=== PATIENT | male | born 1955 | race African-American/Black ===

== ENCOUNTER 2025-09-10 15:05 | Outpatient (AMB) | payer MEDICARE, OTHER, SELFPAY ==
--- NOTE | 2025-09-10 15:24 | MHC.OFFVIS ---
Intake Visit Reasons: f/u missed appt 12/2024 HPI Comments Details: The patient is a 70 year old male presenting for follow-up and management of his advanced neurodegenerative disorder. According to his family, his condition has worsened recently; he is not talking much and has difficulty walking, requiring a wheelchair. The patient is cared for at home by his family, with [facility], and they wish for him to remain at home. The patient experiences a reversed sleep-wake cycle, sleeping during the daytime and being awake at night, but is not experiencing hallucinations or agitation. Review of Systems Narrative - Neurological: Reports being non-verbal and having difficulty walking. - Psychiatric: Denies hallucinations or agitation. - Sleep: Reports sleeping during the day and being awake at night. Physical Exam Neuro Other: Mental Status: He is alert and awake but does not communicate. Cranial Nerves: CN II: Visual magana full to confrontation, visual acuity intact. CN III, IV, : Pupils equal, round, reactive to light and accommodation. Extraocular movements are normal. CN V: Facial sensation is normal. CN VII: Facial movements symmetrical. CN VIII: Hearing intact to bedside conversation is normal. CN IX, X: Palate elevates symmetrically. CN XI: Shoulder shrug and head turn symmetrical. CN XII: Tongue midline without atrophy or fasciculations. He is in a wheelchair. Extrapyramidal: Full facial expressions and blinking. No rigidity. Movements are appropriate with no tremor or abnormality. Speech: He did not speak. Assessment & Plan Assessment & Plan (1) Frontotemporal dementia: Comment: PET scan at [facility] in 2020: Diminished metabolism in b/l temporal and frontal lobes, and right parieto-occipital junction. Code(s): G31.09 - Other frontotemporal neurocognitive disorder; F02.80 - Dementia in other diseases classified elsewhere, unspecified severity, without behavioral disturbance, psychotic disturbance, mood disturbance, and anxiety Category: Medical Plan Impression: Severe dementia with PET scan revealing frontotemoral dysfunction Rec: a: Education b: Memantine 5mg bid c: EEG I discussed the patient's worsening condition with his family. I explained the rationale for focusing on interventions that can be fixed, and in that context, I am ordering an EEG to rule out abnormal electrical brain activity. We will initiate a one-month trial of memantine, emphasizing that it will be discontinued if no visible benefit is observed. We also had a [id number] discussion regarding his medications. I advised the family to talk with his primary medical doctor about potentially stopping nonessential medications, such as those for cholesterol, to align treatment with a comfort-focused approach. The final decision on continuing such therapies remains with the family. Orders: Orders EEG Routine Today G93.40 - Encephalopathy, unspecified Medications: New memantine 5 mg PO BID 60 tabs 0RF 30 days Coding Level of Care Code Est Pt Level 4 (26836) Diagnoses Frontotemporal dementia G31.09; F02.80
--- OUTSIDE RECORDS SUMMARY | 2025-09-10 18:19 | XMS_ITS | Encounter Summary ---
Author Organization [facility] Address [address] [place] [address] Phone Care Team Providers Care Gas Burner Operator Name Role Phone Pcp, Unknown Primary Care Provider Unavailabl e Encounter Details Date Type Department Care Team (Late st Contact Info) Description 01/09/2021 Procedure [facility], Ct Scan - [address] [address] Social History Tobacco Use Types Packs/Day Years Used Date Smoking Tobacco: Never Assessed Sex and Gender Information Value Date Recorded Sex Assigned at Not on file Legal Sex Male 8:41 AM EDT Gender Identity Not on file Sexual Orientation Not on file documented as of this encounter Plan of Treatment Not on file documented as of this encounter Visit Diagnoses Not on filedocumented in this encounter Care Teams Gas Burner Operator Relationship Specialty Start Date End Date Pcp, Unknown PCP - General 01/09/21 documented as of this encounter Additional Source Comments The information contained in this document represents components of the legal health record. It is not the complete legal health record.[facility]
--- OUTSIDE RECORDS SUMMARY | 2025-09-10 18:19 | XMS_ITS | Clinical Summary ---
Author Organization [facility] Address [address] [facility] [address] [place] [id number] Phone Care Team Providers Care Rehab Therapy Manager Name Role Phone Pcp, Unknown Primary Care Provider Unavailabl e Allergies Active Allergy Reactions Criticality Noted Date Comments Bee Pollen 01/09/2021 Medications LISINOPRIL ORAL Take by mouth. Active Social History Tobacco Use Types Packs/Day Years Used Date Smoking Tobacco: Never Assessed Education Answer Date Recorded Are you interested in more education? Not on henny e 01/16/2023 Are you concerned about learning? Not on file 01/16/2023 No 01/16/2023 No 01/16/2023 Digital Access Answer Date Recorded No 02/16/2023 No 02/16/2023 Reliable internet access at home? Not on file 02/16/2023 Device with a working camera? Not on file Sex and Gender Information Value Date Recorded Sex Assigned at Not on file Legal Sex Male 8:41 AM EDT Gender Identity Not on file Sexual Orientation Not on file Last Filed Vital Signs Vital Sign Reading Time Taken Comments Blood Pressure 158/85 01/09/2021 11:00 AM EDT Pulse 67 01/09/2021 11:00 AM EDT Temperature 36.4 C (97.5 F) 01/09/2021 9:23 AM EDT Respiratory Rate 16 01/09/2021 11:00 AM EDT Oxygen Saturation 96% 01/09/2021 11:00 AM EDT Inhaled Oxygen Concentration - - Weight - - Height - - Body Mass Index - - Plan of Treatment Not on file Medical Devices Not on file Insurance [facility] Member Subscriber Plan / Payer (Ef fective 2006-Present) Name:Bakari Gonsalez Relation to Subscriber:Self Name:Bakari Gonsalez Payer ID:[id number] (NAIC) Group ID:[id number] Type:PPO Address: [phone] [facility] Member Subscriber Plan / Payer (Ef fective 2006-Present) Name:Bakari Gonsalez Relation to Subscriber:Self Name:Bakari Gonsalez Payer ID:[id number] (NAIC) Group ID:[id number] Type:PPO Address: [phone] [facility] Member Subscriber Plan / Payer (Ef fective 2006-Present) Name:Bakari Gonsalez Relation to Subscriber:Self Name:Bakari Gonsalez Payer ID:[id number] (NAIC) Group ID:[id number] Type:PPO Address: [phone] [facility] Member Subscriber Plan / Payer (Ef fective 2006-Present) Name:Bakari Gonsalez Relation to Subscriber:Self Name:Bakari Gonsalez Payer ID:[id number] (NAIC) Group ID:[id number] Type:PPO Address: [phone] [facility] Member Subscriber Plan / Payer (Ef fective 2006-Present) Name:Bakari Gonsalez Relation to Subscriber:Self Name:Bakari Gonsalez Payer ID:[id number] (NAIC) Group ID:[id number] Type:PPO Address: [id number] [facility] Member Subscriber Plan / Payer (Ef fective 2006-Present) Name:Bakari Gonsalez Relation to Subscriber:Self Name:Bakari Gonsalez Payer ID:[id number] (NAIC) Group ID:[id number] Type:PPO Address: [phone] [facility] Member Subscriber Plan / Payer (Ef fective 2006-Present) Name:Bakari Gonsalez Relation to Subscriber:Self Name:Bakari Gonsalez Payer ID:[id number] (NAIC) Group ID:[id number] Type:PPO Address: [phone] [facility] Member Subscriber Plan / Payer (Ef fective 2006-Present) Name:Bakari Gonsalez Relation to Subscriber:Self Name:Bakari Gonsalez Payer ID:[id number] (NAIC) Group ID:[id number] Type:PPO Address: [phone] [facility] Care Teams Rehab Therapy Manager Relationship Specialty Start Date End Date Pcp, Unknown PCP - General 01/09/21 Additional Source Comments The information contained in this document represents components of the legal health record. It is not the complete legal health record.[facility]
--- OUTSIDE RECORDS SUMMARY | 2025-09-10 18:19 | XMS_ITS | Clinical Summary ---
Author Organization [facility] Address [address] [place] [address] Phone Care Team Providers Care Marshmallow Machine Worker Name Role Phone Physician, No Pcp Primary Care Provider Unavaila ble Allergies Active Allergy Reactions Criticality Noted Date Comments Bee Pollen 03/29/2025 Other 03/12/2023 Medications traZODone (DESYREL) 50 mg tablet TAKE ONE TABLET BY MOUTH 30 MINUTES BEFORE BED NIGHTLY 06/19/2024 Active EPINEPHrine (EpiPen 2-Alexi) 0.3 mg/0.3 mL injection Inject 0.3 mg into the muscle as needed for Other (anaphylaxis/ bee stings). 07/12/2023 Active lisinopril-hydr oCHLOROthiazide (PRINZIDE,ZESTO RETIC) 10-12.5 mg per tablet TAKE 2 TABLETS BY MOUTH EVERY DAY 06/15/2024 Active memantine (NAMENDA) 5 mg tablet Take 1 Tablet by mouth 2 times daily. Active simvastatin (ZOCOR) 40 mg tablet Take 1 Tablet by mouth at bedtime. 03/20/2024 Active tiotropium (SPIRIVA) 18 mcg per inhalation capsule Inhale 1 Capsule into the lungs daily. Inhale the contents of one capsule through the Spiriva device every AM 12/22/2023 Active albuterol HFA (PROAIR HFA ; PROVENTIL HFA ; VENTOLIN HFA) 90 mcg/actuation inhaler INHALE 2 PUFFS INTO THE LUNGS EVERY 4 HOURS NEEDED FOR COUGH OR WHEEZING. 8.5 each 1 09/18/2024 Active apixaban (ELIQUIS) 5 mg tablet Take 1 tablet (5 mg total) by mouth. 11/16/2024 Active polyethylene glycol (MIRALAX) 17 gram packet Take 17 g by mouth 1 (one) time each day. Active Active Problems Problem Noted Date Diagnosed Date Insomnia 12/22/2023 Prediabetes 07/13/2023 Frontotemporal dementia 04/12/2023 Class 1 obesity due to excess calories in adult 04/09/2023 Chronic obstructive pulmonary disease 01/05/2022 Mixed hyperlipidemia 01/05/2022 Primary hypertension 01/05/2022 Immunizations Immunization Administration Dates Next Due Influenza Quadravalent, MDCK , 0.5ml, preservative free (Flucelvax) 6mo and older 05/31/2020 Influenza trivalent, 0.5mL (Fluad) 65yo and olde r 07/10/2022 Influenza trivalent, 0.5mL, preservative free (Fluarix; FluLaval; Fluzone) ages 6mo and older (Afluria) 3 years and older 06/21/2021,07/22/2018 Pneumococcal conjugate 20 va lent (Prevnar 20, PCV 20) 2mo and older 04/12/2023 Pneumococcal polysaccharide 23 valent (Pneumovax 23) 2yo and older 01/05/2022 Td Tetanus diptheria (Tdvax) 7yo and older 08/26 Tdap Tetanus diptheria acell ular pertussis (Boostrix; Adacel) 7yo and older 12/09/2022 Zoster recombinant (Shingrix) 19yo and older ,06/10/2020 Surgical History Surgery Date Site/Laterality Comments WISDOM TOOTH EXTRACTION PROCEDURE: HISTORICAL WISDOM TEETH EXTRACTION KNEE SURGERY 2007 Bilateral PROCEDURE: HISTORICAL KNEE SURGERY Medical History Medical History Date Comments COPD (chronic obstructive pu lmonary disease) ([facility] V24, [facility] V28) DX:COPD (chronic o bstructive pulmonary disease) ([facility]) Essential (primary) hypertension DX:Essential (primary) hypertension Mixed hyperlipidemia DX:Mixed hy perlipidemia Former smoker DX:Former smoker Family History Medical History Relation Name Comments No Known Problems Father No Known Problems Maternal Grandfather No Known Problems Maternal Grandmother No Known Problems Mother No Known Problems Paternal Grandfather No Known Problems Paternal Grandmother No Known Problems Sister 1 No Known Problems Sister 2 No Known Problems Son 1 No Known Problems Son 2 No Known Problems Son 3 No Known Problems Son 4 Relation Name Status Comments Father Maternal Grandfather Maternal Grandmother Mother Paternal Grandfather Paternal Grandmother Sister 1 Alive Sister 2 Alive Sister 3 Alive Son 1 Alive Son 2 Alive Son 3 Alive Son 4 Alive Social History Tobacco Use Types Packs/Day Years Used Date Smoking Tobacco: Former Smokeless Tobacco: Never Alcohol Use Standard Drinks/Week Comments Yes 0 (1 standard drink = 0.6 oz pur e alcohol) Sex and Gender Information Value Date Recorded Sex Assigned at Not on file Legal Sex Male 10:42 PM EST Gender Identity Not on file Sexual Orientation Not on file Last Filed Vital Signs Vital Sign Reading Time Taken Comments Blood Pressure 120/72 03/29/2025 3:54 PM EDT Pulse 58 03/29/2025 3:54 PM EDT Temperature - - Respiratory Rate - - Oxygen Saturation - - Inhaled Oxygen Concentration - - Weight 95.3 kg (210 lb) 03/29/2025 3:54 PM EDT Height 182.9 cm (6') 03/29/2025 3:54 PM EDT Body Mass Index 28.48 03/29/2025 3:54 PM EDT Plan of Treatment Health Maintenance Due Date Last Done Comments Colorectal Cancer Screening: Colonoscopy 1955 Abdominal Aortic Aneurysm (AAA) Screen 08/23/2022 Falls Risk Assessment 08/23/2022 Social Influencers of Health Screening 08/23/2022 Depression Screening 09/20/2024 Hypertension/CHF/CAD Annual BMP Blood Test 01/02/2025 01/03/2024 COVID-19 Vaccine ( season) 2025 09/05/2021, 12/20/2020, 11/29/2020 Influenza Vaccine (#1) 2025 , 06/21/2021, 05/31/2020, Additional history exists Cholesterol Screening (Lipid Panel) 07/12/2028 07/12/2023 DTaP,Tdap,and Td Vaccines (5 - Td or Tdap) 12/09/2032 12/09/2022, 08/26/2022, 06/21/2017, Additional history exists Zoster Vaccines Completed 09/14/2020, 06/10/2020 Hepatitis C Screening Completed 01/05/2022 Pneumococcal Vaccine: 50+ Years Completed 04/12/2023, 01/05/2022, 09/23/2016, Additional history exists RSV Immunization Adult Patients Completed 01/02/2025 HIB Vaccines Aged Out No longer eligi ble based on patient's age to complete this topic HPV Vaccines Aged Out No longer eligi ble based on patient's age to complete this topic Hepatitis A Vaccines Aged Out No long er eligible based on patient's age to complete this topic Hepatitis B Vaccines Aged Out No long er eligible based on patient's age to complete this topic IPV Vaccines Aged Out No longer eligi ble based on patient's age to complete this topic MMR Vaccines Aged Out No longer eligi ble based on patient's age to complete this topic Meningococcal ACWY Vaccine Aged Out N o longer eligible based on patient's age to complete this topic Meningococcal B Vaccine Aged Out No l onger eligible based on patient's age to complete this topic RSV Immunization Patients Under 20 months Aged Out No longer eligible based on patient's age to complete this topic Varicella Vaccines Aged Out No longer eligible based on patient's age to complete this topic Procedures Procedure Name Priority Date/Time Associated Diagnosis Comments ANNUAL BMP BLOOD TEST Routine 01/03/2024 LIPID PANEL Routine 07/12/2023 HEPATITIS C SCREENING Routine 01/05/2022 from Last 3 Months or Most Recently Relevant to Health Maintenance Results * Annual BMP Blood Test (01/03/2024) Pathologist [facility] Annual BMP Blood Test abstracted us Historical Provider HEALTH MAINTENANCE Final Result * (ABNORMAL) Lipid panel (07/12/2023) [facility] LDL/HDL Ratio 4 0 - 4 Triglycerides 187(A) 0 - 150 mg/dL Cholesterol 189 0 - 200 mg/dL HDL 46 >=40 mg/dL LDL Cholesterol 106(A) 0 - 100 mg/dL Blood Venous blood specimen / Unknown Historical Provider LAB BLOOD ORDERABLES Gema l Result * Hepatitis C Screening (01/05/2022) Hepatitis C Screening abstracted Historical Provider HEALTH MAINTENANCE Final Result from Last 3 Months or Most Recently Relevant to Health Maintenance Insurance [facility] Care Teams Marshmallow Machine Worker Relationship Specialty Start Date End Date Physician, No Pcp PCP - General 09/22/24
--- OUTSIDE RECORDS SUMMARY | 2025-09-10 18:19 | XMS_ITS | Encounter Summary ---
Author Organization [facility] Address [address] [place] [address] Phone Care Team Providers Care Stereotype Finisher Name Role Phone Pcp, Unknown Primary Care Provider Unavailabl e Encounter Details Date Type Department Care Team (Late st Contact Info) Description 01/09/2021 Procedure [facility], Ct Scan - [address] [address] Social History Tobacco Use Types Packs/Day Years [...] on filedocumented in this encounter Care Teams Stereotype Finisher Relationship Specialty Start Date End Date Pcp, Unknown PCP - General 01/09/21 documented as of this encounter Additional Source Comments The information contained in this document represents components of the legal health record. It is not the complete legal health record.[facility]
== END 2025-09-10 15:42 | disposition home or self-care (01) ==
LOC: HO.HSM 15:06
PROVIDERS: Visit Provider Psychiatry & Neurology Neurology
DX: G31.09 Other frontotemporal neurocognitive disorder (principal); F02.80 Dementia in other diseases classified elsewhere, unspecified severity, without behavioral disturbance, psychotic disturbance, mood disturbance, and anxiety
CPT/HCPCS: 99214

== ENCOUNTER → 2025-09-10 15:05 | Outpatient (BNVA) | payer MEDICARE, OTHER, SELFPAY | PROVIDERS: Visit Provider Psychiatry & Neurology Neurology | DX: G31.09 Other frontotemporal neurocognitive disorder (principal); F02.80 Dementia in other diseases classified elsewhere, unspecified severity, without behavioral disturbance, psychotic disturbance, mood disturbance, and anxiety | CPT/HCPCS: 99212 ==